=== PATIENT | male | born 1945 | race Caucasian/White ===

== ENCOUNTER 2023-12-07 07:58 | Day surgery (SDC) | payer OTHER, BC ==
[2023-12-02 15:50] VITALS: BMI 17.2
[2023-12-07] MEDS: CYCLOPENTOLATE 2% OPHTH SOLN 2 ML BOTTLE OS ONE ×3 (08:25→08:35)
[2023-12-07] MEDS: CIPROFLOXACIN 0.3% EYE DROPS 5 ML BOTTLE OS ONE ×3 (08:25→08:35)
[2023-12-07] MEDS: TROPICAMIDE 1% OPHTH SOLN 15 ML BOTTLE OS ONE ×3 (08:25→08:35)
[2023-12-07] MEDS: PHENYLEPHRINE 2.5% OPHTH SOLN 15 ML BOTTLE OS ONE ×3 (08:25→08:35)
[2023-12-07] MEDS ORDERED: EPINEPHrine/PF 1 MG/1 ML (1:1,000) AMPULE ONE (08:29)
[2023-12-07] MEDS ORDERED: LIDOCAINE 1% P/F 10 MG/ML VIAL ONE (08:29)
[2023-12-07] MEDS ORDERED: CARBACHOL 0.01% INTRA-OCULAR 1.5 ML VIAL ONE (08:30)
[2023-12-07] MEDS ORDERED: BSS (NA/CA/MG/K) BALANCED SALT SOLUTION OPHTH SOLN 15 ML BOTTLE ONE (08:30)
[2023-12-07] MEDS ORDERED: NEO/POLYMYX B SULF/DEXAMETH OPHTHALMIC 5ML BOTTLE ONE (08:30)
[2023-12-07] MEDS ORDERED: TETRACAINE 0.5% OPHTH SOLN 2 ML BOTTLE ONE (08:30)
[2023-12-07] MEDS ORDERED: MIDAZOLAM HCL 2 MG/2 ML SINGLE DOSE VIAL ONE (09:25)
[2023-12-07 10:33] VITALS: RESP 18; TEMP 97.7
[2023-12-07 11:10] VITALS: BP 139/64; PULSE 62
== END 2023-12-07 11:05 | disposition home or self-care (01) ==
LOC: FASU 07:58
PROVIDERS: ATTEND Ophthalmology
PROC: 08RK3JZ Replacement of Left Lens with Synthetic Substitute, Percutaneous Approach (ICD-10-PCS; principal; 2023-12-07 10:03)
DX: H26.8 Other specified cataract (principal)
CPT/HCPCS: 66984; V2632; 82962

== ENCOUNTER 2024-01-04 07:22 | Day surgery (SDC) | payer OTHER, BC ==
[2023-12-29 14:53] VITALS: BMI 17.2
[2024-01-04] MEDS: TROPICAMIDE 1% OPHTH SOLN 15 ML BOTTLE ONE (07:55)
[2024-01-04] MEDS: PHENYLEPHRINE 2.5% OPTHALMIC DROP 2ML BOTTLE ONE (07:55)
[2024-01-04] MEDS: CYCLOPENTOLATE 2% OPHTH SOLN 2 ML BOTTLE ONE (07:55)
[2024-01-04] MEDS: CIPROFLOXACIN 0.3% EYE DROPS 5 ML BOTTLE ONE (07:55)
[2024-01-04] MEDS ORDERED: NEO/POLYMYX B SULF/DEXAMETH OPHTHALMIC 5ML BOTTLE ONE (09:00)
[2024-01-04] MEDS ORDERED: BSS (NA/CA/MG/K) BALANCED SALT SOLUTION OPHTH SOLN 15 ML BOTTLE ONE (09:00)
[2024-01-04] MEDS ORDERED: LIDOCAINE 1% P/F 10 MG/ML VIAL ONE (09:00)
[2024-01-04] MEDS ORDERED: CARBACHOL 0.01% INTRA-OCULAR 1.5 ML VIAL ONE (09:00)
[2024-01-04] MEDS ORDERED: TETRACAINE 0.5% OPHTH SOLN 2 ML BOTTLE ONE (09:00)
[2024-01-04] MEDS ORDERED: MIDAZOLAM HCL 2 MG/2 ML SINGLE DOSE VIAL ONE (09:08)
[2024-01-04 10:18] VITALS: RESP 18
[2024-01-04 10:46] VITALS: BP 131/45; PULSE 58; TEMP 97.3
== END 2024-01-04 10:39 | disposition home or self-care (01) ==
LOC: FASU 07:22
PROVIDERS: ATTEND Ophthalmology
PROC: 08RJ3JZ Replacement of Right Lens with Synthetic Substitute, Percutaneous Approach (ICD-10-PCS; principal; 2024-01-04 09:43)
DX: H26.8 Other specified cataract (principal)
CPT/HCPCS: 66984; V2632; 82962